=== PATIENT | female | born 1995 | race Caucasian/White ===

== ENCOUNTER 2019-08-09 14:26 | Emergency (ER) | payer BC ==
[2019-08-09] MEDS ORDERED: ONDANSETRON HCL INJ/PF 4 MG/2 ML SDV IV ONE (14:39)
--- NOTE | 2019-08-09 14:44 | ER Document Report ---
ED Medical Screen (RME) - General Chief Complaint: Possible Overdose Stated Complaint: POSSIBLE OVERDOSE Time Seen by Provider: 08/09/19 14:38 TRAVEL OUTSIDE OF THE [place] IN LAST 30 DAYS: No - HPI Notes: 08/09/19 14:40 Patient is a 23-year-old female with a history of polysubstance drug abuse with most common drug being cocaine and Xanax by way of snorting who presents complaining of nausea, vomiting, fatigue that began after ingesting 2 to 3 tablets of what she thought was Xanax. Patient later figured out that it was 'dirty 30' which is a Percocet laced with fentanyl drug. Patient states that she took 2 to 3 tablets at 7-8 AM this morning. She is otherwise urinating normally. Denies drug allergies. Denies fever, chest pain, shortness of breath, abdominal pain. I have treated and performed a rapid initial assessment of this patient. A comprehensive ED assessment and evaluation of the patient, analysis of test results and completion of medical decision making process will be conducted by additional ED providers. PHYSICAL EXAMINATION: GENERAL: Well-appearing, well-nourished and in no acute distress. A&Ox4. Answers questions appropriately. Eyes: PERRLA, EOMI bilaterally. Neuro: Cranial nerves grossly intact - Related Data Allergies/Adverse Reactions: No Known Allergies Allergy (Verified 08/09/19 14:32) Past Medical History - Social History Chew tobacco use (# tins/day): No Frequency of alcohol use: Rare Drug Abuse: Cocaine, Heroin, Methamphetamine, Other Psychiatric Medical History: Reports: Hx Depression - Immunizations Hx Diphtheria, Pertussis, Tetanus Vaccination: Yes
[2019-08-09 15:54] LABS: ABSOLUTE BASOPHILS # (AUTO) 0.1 10^3/uL (0.0-0.2); ABSOLUTE EOSINOPHILS # (AUTO) 0.1 10^3/uL (0.0-0.6); ABSOLUTE LYMPHOCYTES (AUTO) 1.7 10^3/uL (0.5-4.7); ABSOLUTE MONOCYTES (AUTO) 0.7 10^3/uL (0.1-1.4); ABSOLUTE NEUT (AUTO) 12.4 10^3/uL (1.7-8.2); BASOPHILS % (AUTO) 0.6 % (0-2); EOSINOPHILS % (AUTO) 0.4 % (0-6); HEMATOCRIT 40.2 % (36.0-47.0); HEMOGLOBIN 13.5 g/dL (12.0-15.5); LYMPHOCYTES % (AUTO) 11.4 % (13-45); MEAN CORPUSCULAR HEMOGLOBIN 27.6 pg (27.0-33.4); MEAN CORPUSCULAR HGB CONC 33.5 g/dL (32.0-36.0); MEAN CORPUSCULAR VOLUME 83 fl (80-97); MONOCYTES % (AUTO) 4.8 % (3-13); PLATELET COUNT 328 10^3/uL (150-450); RED BLOOD COUNT 4.88 10^6/uL (3.72-5.28); RED CELL DISTRIBUTION WIDTH 15.5 % (11.5-14.0); SEGMENTED NEUTROPHILS % (AUTO) 82.8 % (42-78); TOTAL CELLS COUNTED % (AUTO) 100 %
[2019-08-09 15:59] LABS: APPEARANCE,URINE SLIGHTLY-CLOUDY; BILIRUBIN,URINE NEGATIVE (NEGATIVE); COLOR,URINE YELLOW; GLUCOSE, URINE NEGATIVE (NEGATIVE); KETONES,URINE NEGATIVE (NEGATIVE); LEUKOCYTE ESTERASE,URINE NEGATIVE (NEGATIVE); NITRITE,URINE NEGATIVE (NEGATIVE); PROTEIN,URINE 30 mg/dL (NEGATIVE); UROBILINOGEN,URINE NEGATIVE mg/dL (<2.0)
[2019-08-09 16:05] LABS: ALBUMIN 4.5 g/dL (3.5-5.0); ALKALINE PHOSPHATASE 62 U/L (38-126); ANION GAP 11 (5-19); ASPARTATE AMINO TRANSFERASE 26 U/L (14-36); BILIRUBIN,DIRECT 0.1 mg/dL (0.0-0.4); BILIRUBIN,TOTAL 0.5 mg/dL (0.2-1.3); BLOOD UREA NITROGEN 12 mg/dL (7-20); CALCIUM 9.6 mg/dL (8.4-10.2); CARBON DIOXIDE 25 mmol/L (22-30); CHLORIDE 105 mmol/L (98-107); GLUCOSE 107 mg/dL (75-110); POTASSIUM 4.3 mmol/L (3.6-5.0)
[2019-08-09 16:07] LABS: ACETAMINOPHEN < 10 ug/mL (10-30); ALCOHOL < 10 mg/dL (NONE DETECTED); SALICYLATE < 1.0 mg/dL (2.0-20.0)
[2019-08-09 16:09] LABS: URINE AMPHETAMINES SCREEN NEGATIVE; URINE BARBITURATES SCREEN NEGATIVE; URINE BENZODIAZEPINES SCREEN NEGATIVE; URINE COCAINE SCREEN NEGATIVE; URINE MARIJUANA (THC) SCREEN NEGATIVE; URINE METHADONE SCREEN NEGATIVE; URINE PHENCYCLIDINE SCREEN NEGATIVE
[2019-08-09] MEDS ORDERED: ONDANSETRON HCL INJ/PF 4 MG/2 ML SDV ONE ×2 (17:52→17:53)
--- NOTE | 2019-08-09 17:58 | EKG REPORT ---
SEVERITY:- BORDERLINE ECG - SINUS RHYTHM BORDERLINE T ABNORMALITIES, DIFFUSE LEADS : Confirmed by: Noah Davis MD 09-Aug-2019 17:57:48
[2019-08-09] MEDS: NORMAL SALINE 1000 ML 1,000 ML IV PRN ×2 (18:03→18:04)
--- NOTE | 2019-08-09 18:40 | ER Document Report ---
ED General - General Chief Complaint: Possible Overdose Stated Complaint: POSSIBLE OVERDOSE Time Seen by Provider: 08/09/19 14:38 Primary Care Provider: SHIN BO PA [Primary Care Provider] - Follow up as needed Notes: RME NOTE: Patient is a 23-year-old female with a history of polysubstance drug abuse with most common drug being cocaine and Xanax by way of snorting who presents complaining of nausea, vomiting, fatigue that began after ingesting 2 to 3 tablets of what she thought was Xanax. Patient later figured out that it was 'dirty 30' which is a Percocet laced with fentanyl drug. Patient states that she took 2 to 3 tablets at 7-8 AM this morning. She is otherwise urinating normally. Denies drug allergies. Denies fever, chest pain, shortness of breath, abdominal pain. My HPI: Patient voices she did take medications as listed above this morning between 7 and 8 AM. Patient voices initially she felt generalized body aches. States she vomited "so many times." States she was initially tired and felt as though she cannot keep her eyes open. Patient voices "I was so much worse this morning." Patient voices that her friend convinced her to come to the emergency department for evaluation. Patient's denying any abdominal pain, she is denying any chest pain or shortness of breath. She is denying any URI symptoms or fever. She is denying any any skin infections. Patient has been treated with Zofran and 2 L of fluid by E provider. Patient voices "I feel so much better now." TRAVEL OUTSIDE OF THE [place] IN LAST 30 DAYS: No - Related Data Allergies/Adverse Reactions: No Known Allergies Allergy (Verified 08/09/19 14:32) Past Medical History - General Information source: Patient - Social History Smoking Status: Current Every Day Smoker Chew tobacco use (# tins/day): No Frequency of alcohol use: Rare Drug Abuse: Cocaine, Heroin, Methamphetamine, Other Family History: Reviewed & Not Pertinent Patient has suicidal ideation: Yes Patient has homicidal ideation: No Psychiatric Medical History: Reports: Hx Depression - Immunizations Hx Diphtheria, Pertussis, Tetanus Vaccination: Yes Hx Pneumococcal Vaccination: 01/24/15 Review of Systems - Review of Systems Constitutional: denies: Fever EENT: No symptoms reported Cardiovascular: denies: Chest pain Respiratory: No symptoms reported Gastrointestinal: See HPI Genitourinary: No symptoms reported Female Genitourinary: No symptoms reported Musculoskeletal: See HPI Skin: See HPI Hematologic/Lymphatic: No symptoms reported Neurological/Psychological: See HPI Physical Exam - Vital signs Vitals: Pulse Resp BP Pulse Ox 85 16 145/67 H 99 08/09/19 14:30 08/09/19 14:30 08/09/19 14:30 08/09/19 14:30 - Notes Notes: GENERAL: Alert, interacts well. No acute distress. HEAD: Normocephalic, atraumatic. EYES: Pupils equal, round, and reactive to light. Extraocular movements intact. ENT: Oral mucosa moist, tongue midline. NECK: Full range of motion. Supple. Trachea midline. LUNGS: Clear to auscultation bilaterally, no wheezes, rales, or rhonchi. No respiratory distress. HEART: Regular rate and rhythm. No murmur ABDOMEN: Soft, non-tender. Non-distended. Bowel sounds present in all 4 quadrants. EXTREMITIES: Moves all 4 extremities spontaneously. No edema, normal radial and dorsalis pedis pulses bilaterally. No cyanosis. 5 out of 5 strength noted all 4 extremities. BACK: no cervical, thoracic, lumbar midline tenderness. No saddle anesthesia, normal distal neurovascular exam. NEUROLOGICAL: Alert and oriented x3. Normal speech. cranial nerves II through XII grossly intact PSYCH: Normal affect, normal mood. SKIN: Warm, dry, normal turgor. No rashes or lesions noted. Course - Re-evaluation Re-evalutation: I have spoken with [facility], . 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 States that the patient does appear dehydrated we can rehydrate her. Otherwise there is no need for continued evaluation. Laboratory 08/09/19 08/09/19 08/09/19 15:25 15:25 15:25 WBC 15.0 H RBC 4.88 Hgb 13.5 Hct 40.2 MCV 83 MCH 27.6 MCHC 33.5 RDW 15.5 H Plt Count 328 Lymph % (Auto) 11.4 L [place] % (Auto) 4.8 Eos % (Auto) 0.4 Baso % (Auto) 0.6 Absolute Neuts (auto) 12.4 H Absolute Lymphs (auto) 1.7 Absolute Monos (auto) 0.7 Absolute Eos (auto) 0.1 Absolute Basos (auto) 0.1 Seg Neutrophils % 82.8 H Sodium 140.6 Potassium 4.3 Chloride 105 Carbon Dioxide 25 Anion Gap 11 BUN 12 Creatinine 0.87 Est GFR ( Amer) > 60 Est GFR (MDRD) Non-Af > 60 Glucose 107 Calcium 9.6 Total Bilirubin 0.5 Direct Bilirubin 0.1 Neonat Total Bilirubin Not Reportable Neonat Direct Bilirubin Not Reportable Neonat Indirect Bili Not Reportable AST 26 ALT 23 Alkaline Phosphatase 62 Total Protein 8.0 Albumin 4.5 Serum HCG, Qual NEGATIVE Urine Color Urine Appearance Urine pH Ur Specific [place] Urine Protein Urine Glucose (UA) Urine Ketones Urine Blood Urine Nitrite Urine Bilirubin Urine Urobilinogen Ur Leukocyte Esterase Urine WBC (Auto) Urine RBC (Auto) Squamous Epi Cells Auto Urine Mucus (Auto) Urine Ascorbic Acid Salicylates < 1.0 L Urine Opiates Screen Urine Methadone Screen Acetaminophen < 10 L Ur Barbiturates Screen Ur Phencyclidine Scrn Ur Amphetamines Screen U Benzodiazepines Scrn Urine Cocaine Screen U Marijuana (THC) Screen Serum Alcohol < 10 08/09/19 08/09/19 15:30 15:30 WBC RBC Hgb Hct MCV MCH MCHC RDW Plt Count Lymph % (Auto) [place] % (Auto) Eos % (Auto) Baso % (Auto) Absolute Neuts (auto) Absolute Lymphs (auto) Absolute Monos (auto) Absolute Eos (auto) Absolute Basos (auto) Seg Neutrophils % Sodium Potassium Chloride Carbon Dioxide Anion Gap BUN Creatinine Est GFR ( Amer) Est GFR (MDRD) Non-Af Glucose Calcium Total Bilirubin Direct Bilirubin Neonat Total Bilirubin Neonat Direct Bilirubin Neonat Indirect Bili AST ALT Alkaline Phosphatase Total Protein Albumin Serum HCG, Qual Urine Color YELLOW Urine Appearance SLIGHTLY-CLOUDY Urine pH 6.0 Ur Specific [place] 1.030 Urine Protein 30 H Urine Glucose (UA) NEGATIVE Urine Ketones NEGATIVE Urine Blood NEGATIVE Urine Nitrite NEGATIVE Urine Bilirubin NEGATIVE Urine Urobilinogen NEGATIVE Ur Leukocyte Esterase NEGATIVE Urine WBC (Auto) 2 Urine RBC (Auto) 1 Squamous Epi Cells Auto 7 Urine Mucus (Auto) MANY Urine Ascorbic Acid NEGATIVE Salicylates Urine Opiates Screen NEGATIVE Urine Methadone Screen NEGATIVE Acetaminophen Ur Barbiturates Screen NEGATIVE Ur Phencyclidine Scrn NEGATIVE Ur Amphetamines Screen NEGATIVE U Benzodiazepines Scrn NEGATIVE Urine Cocaine Screen NEGATIVE U Marijuana (THC) Screen NEGATIVE Serum Alcohol Patient is denying suicidal or homicidal ideations. She is denying the want or need for rehabilitation. Patient voices she was concerned because the medication was laced with fentanyl and she has heard back "that stuff will kill you." Patient has been treated with 2 L of fluid in the emergency department, she is also been given Zofran. Patient's repeat examination reveals no abdominal pain. Abdomen is soft and nontender throughout. Labs do show signs of leukocytosis which could be due to her excessive vomiting. Patient has had no further episodes of vomiting in the emergency department. Patient has been able to p.o. fluids. Patient stable for discharge. - Vital Signs Vital signs: Temp Pulse Resp BP Pulse Ox 97.7 F 85 24 H 145/67 H 98 08/09/19 16:25 08/09/19 14:30 08/09/19 18:18 08/09/19 14:30 08/09/19 18:00 - Laboratory Result Diagrams: 08/09/19 15:25 08/09/19 15:25 Laboratory results interpreted by me: 08/09/19 08/09/19 08/09/19 15:25 15:25 15:30 WBC 15.0 H RDW 15.5 H Lymph % (Auto) 11.4 L Absolute Neuts (auto) 12.4 H Seg Neutrophils % 82.8 H Urine Protein 30 H Salicylates < 1.0 L Acetaminophen < 10 L Discharge - Discharge Clinical Impression: Accidental overdose Qualifiers: Encounter type: initial encounter Qualified Code(s): T50.901A - Poisoning by unspecified drugs, medicaments and biological substances, accidental (unin tentional), initial encounter Condition: Stable Disposition: HOME, SELF-CARE Instructions: Overdose ([facility]) Additional Instructions: As we discussed you have been seen and treated in the emergency department after an accidental overdose. Is very important that you do not take medications that are not prescribed to you. Please follow-up with your primary care in the next 12 to 24 hours. Return to the emergency department for any concerns. Referrals: SHIN BO PA [Primary Care Provider] - Follow up as needed
[2019-08-09 19:55] VITALS: BP 111/64
== END 2019-08-09 19:22 | disposition home or self-care (01) ==
LOC: ER 14:26
DX: T50.901A Poisoning by unspecified drugs, medicaments and biological substances, accidental (unintentional), initial encounter (principal); R11.2 Nausea with vomiting, unspecified; R53.83 Other fatigue; F14.10 Cocaine abuse, uncomplicated; F11.10 Opioid abuse, uncomplicated; F15.10 Other stimulant abuse, uncomplicated; F13.10 Sedative, hypnotic or anxiolytic abuse, uncomplicated; F17.200 Nicotine dependence, unspecified, uncomplicated
CPT/HCPCS: 93005; 36415; 80307 ×4; 84703; 85025; 80053; 81001; 93010; J2405; J7030; 96361; 96374; 99284

== ENCOUNTER 2019-12-01 22:53 | Emergency (ER) | payer OTHER, BC ==
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
--- NOTE | 2019-12-02 00:08 | RADIOLOGY REPORT (SQ) ---
EXAM DESCRIPTION: XR SHOULDER 2 OR MORE VIEWS COMPLETED DATE/TME: 12/01/2019 23:34 CLINICAL HISTORY: 23 years, Female, trauma COMPARISON: None. NUMBER OF VIEWS: 3 TECHNIQUE: Internal/external and transscapular Y projections were acquired LIMITATIONS: None. FINDINGS: Visualized osseous structures are normal in appearance. Joint spaces are well-maintained. No acute fracture or dislocation is evident. Visualized portions of the right lung are clear. IMPRESSION: No acute osseous anomaly. copyright 2010 [employer]- All Rights Reserved
[2019-12-02] MEDS ORDERED: KETOROLAC TROMETHAMINE 60 MG/2 ML SDV IM ONE (00:27)
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
[2019-12-02 01:04] VITALS: BP 110/71
== END 2019-12-02 01:02 | disposition home or self-care (01) ==
LOC: ER 22:53
DX: S40.011A Contusion of right shoulder, initial encounter (principal); Y04.2XXA Assault by strike against or bumped into by another person, initial encounter; Y93.89 Activity, other specified; Y92.481 Parking lot as the place of occurrence of the external cause; Y99.0 Civilian activity done for income or pay; F17.200 Nicotine dependence, unspecified, uncomplicated; Z79.899 Other long term (current) drug therapy
CPT/HCPCS: 99283; 73030; J1885

== ENCOUNTER 2020-03-01 19:02 | Emergency (ER) | payer BC ==
--- NOTE | 2020-03-01 19:13 | ER Document Report ---
HPI - HPI Patient complains to provider of: Cough Time Seen by Provider: 03/01/20 19:09 Onset: Just prior to arrival Quality of pain: Achy Associated Symptoms: None, Slow to respond Relieved by: Denies Notes: This a 24-year-old female presents to the emergency room today with a cough and congestion which is been ongoing for about 2 weeks although she does smoke. She has had no nausea no vomiting she does have some diarrhea. - ROS ROS below otherwise negative: Yes - CONSTITUTIONAL Constitutional: DENIES: Fever - REPRODUCTIVE Reproductive: DENIES: : Past Medical History - General Information source: Patient - Social History Smoking Status: Current Every Day Smoker Cigarette use (# per day): Yes - 20 Frequency of alcohol use: None Drug Abuse: None Family History: Reviewed & Not Pertinent Psychiatric Medical History: Reports: Hx Depression - Immunizations Hx Diphtheria, Pertussis, Tetanus Vaccination: Yes Hx Pneumococcal Vaccination: 01/24/15 Vertical Provider Document - CONSTITUTIONAL Agree With Documented VS: Yes - INFECTION CONTROL TRAVEL OUTSIDE OF THE [place] IN LAST 30 DAYS: No - HEENT HEENT: Atraumatic, Conjuctival Injection, Normocephalic, PERRLA - NECK Neck: Normal Inspection - RESPIRATORY Respiratory: Breath Sounds Normal, No Respiratory Distress - CARDIOVASCULAR Cardiovascular: Regular Rate, Regular Rhythm - GI/ABDOMEN Gastrointestinal: Abdomen Soft, Abdomen Non-Tender - BACK Back: CVA Tenderness-Left - MUSCULOSKELETAL/EXTREMETIES Musculoskeletal/Extremeties: MAEW Course - Re-evaluation Re-evalutation: 03/01/20 20:44 No chest pain no exertional chest pain no shortness of breath no exertional shortness of breath no diaphoresis. Patient does smoke has had a cough intermittently for 3 to 4 days did experience little tightness at 10:00 this morning at work. Which is subsequently gone away. States that she does notice that she has a wheeze on occasion. - Vital Signs Vital signs: Temp Pulse Resp BP Pulse Ox 98.0 F 84 16 134/97 H 97 03/01/20 19:10 03/01/20 19:10 03/01/20 19:10 03/01/20 19:10 03/01/20 19:10 - Laboratory Laboratory results interpreted by me: 03/01/20 20:44 Labs- All tests 24 hr 03/01/20 19:35 Troponin I < 0.012 - Diagnostic Test Radiology results interpreted by me: 03/01/20 20:44 Chest X-Ray 03/01/20 19:12 IMPRESSION: No acute abnormality is identified. Discharge - Discharge Clinical Impression: Reactive airway disease Disposition: HOME, SELF-CARE Instructions: Reactive Airway Disease ([facility]) Prescriptions: Amoxicillin/Potassium Clav [Augmentin 875-125 Tablet] 1 tab PO Q12 #20 tablet Albuterol Sulfate [Proair HFA Inhalation Aerosol 8.5 gm MDI] 2 puff IH Q4H PRN #1 mdi PRN Reason: Referrals: SHIN BO PA [Primary Care Provider] - Follow up as needed
--- NOTE | 2020-03-01 20:22 | RADIOLOGY REPORT (SQ) ---
EXAM DESCRIPTION: XR CHEST 1 VIEW COMPLETED DATE/TME: 03/01/2020 19:12 CLINICAL HISTORY: 24 years Female pain sp fall COMPARISON: None. FINDINGS: The cardiomediastinal silhouette appears unremarkable. No consolidating infiltrates or pleural effusions. No pneumothorax. IMPRESSION: No acute abnormality is identified.
[2020-03-01 20:57] VITALS: BP 122/68
--- NOTE | 2020-03-01 21:52 | EKG REPORT ---
SEVERITY:- NORMAL ECG - SINUS RHYTHM : Confirmed by: Chio Camejo MD 01-Mar-2020 21:52:20
== END 2020-03-01 20:58 | disposition home or self-care (01) ==
LOC: ER 19:02
DX: J45.909 Unspecified asthma, uncomplicated (principal); R05 Cough; R09.81 Nasal congestion; F17.210 Nicotine dependence, cigarettes, uncomplicated
CPT/HCPCS: 36415; 71045; 84484; 93005; 93010; 99284

== ENCOUNTER 2020-03-26 11:22 | Emergency (ER) | payer BC ==
--- NOTE | 2020-03-26 11:49 | ER Document Report ---
ED Medical Screen (RME) - General Chief Complaint: Abdominal Pain Stated Complaint: ABDOMINAL PAIN Time Seen by Provider: 03/26/20 11:42 Primary Care Provider: SHIN BO PA [Primary Care Provider] - Follow up as needed Information source: Patient Notes: Patient presents with left-sided abdominal pain that moved to the lower pelvic area as well today. Patient states symptoms started yesterday. Patient denies any nausea vomiting or diarrhea. Patient does report vaginal discharge and some urinary frequency. Patient is uncertain if she may be . Patient states her menses have been irregular since stopping control 6 months ago. I have greeted and performed a rapid initial assessment of this patient. A comprehensive ED assessment and evaluation of the patient, analysis of test results and completion of the medical decision making process will be conducted by additional ED providers. TRAVEL OUTSIDE OF THE [place] IN LAST 30 DAYS: No - Related Data Allergies/Adverse Reactions: No Known Allergies Allergy (Verified 03/26/20 11:42) Past Medical History Psychiatric Medical History: Reports: Hx Depression - Immunizations Hx Diphtheria, Pertussis, Tetanus Vaccination: Yes Physical Exam - Vital signs Vitals: Temp Pulse Resp BP Pulse Ox 97.9 F 89 18 119/68 98 03/26/20 11:26 03/26/20 11:03/26/20 11:03/26/20 11:03/26/20 11:26 - General General appearance: Appears well, Alert Notes: No CVA tenderness, lower pelvic tenderness, exam limited as patient is sitting in chair Course - Vital Signs Vital signs: Temp Pulse Resp BP Pulse Ox 97.9 F 89 18 119/68 98 03/26/20 11:26 03/26/20 11:03/26/20 11:03/26/20 11:03/26/20 11:26 Doctor's Discharge - Discharge Referrals: SHIN BO PA [Primary Care Provider] - Follow up as needed
[2020-03-26 12:25] LABS: ABSOLUTE BASOPHILS # (AUTO) 0.1 10^3/uL (0.0-0.2); ABSOLUTE EOSINOPHILS # (AUTO) 0.3 10^3/uL (0.0-0.6); ABSOLUTE LYMPHOCYTES (AUTO) 3.4 10^3/uL (0.5-4.7); ABSOLUTE MONOCYTES (AUTO) 0.6 10^3/uL (0.1-1.4); ABSOLUTE NEUT (AUTO) 6.5 10^3/uL (1.7-8.2); EOSINOPHILS % (AUTO) 2.8 % (0-6); HEMOGLOBIN 14.4 g/dL (12.0-15.5); LYMPHOCYTES % (AUTO) 31.4 % (13-45); MEAN CORPUSCULAR HEMOGLOBIN 29.2 pg (27.0-33.4); MEAN CORPUSCULAR HGB CONC 34.2 g/dL (32.0-36.0); MEAN CORPUSCULAR VOLUME 85 fl (80-97); MONOCYTES % (AUTO) 5.2 % (3-13); PLATELET COUNT 349 10^3/uL (150-450); RED BLOOD COUNT 4.93 10^6/uL (3.72-5.28); RED CELL DISTRIBUTION WIDTH 15.1 % (11.5-14.0); SEGMENTED NEUTROPHILS % (AUTO) 59.6 % (42-78); TOTAL CELLS COUNTED % (AUTO) 100 %
[2020-03-26 12:36] LABS: APPEARANCE,URINE CLOUDY; BILIRUBIN,URINE NEGATIVE (NEGATIVE); COLOR,URINE YELLOW; GLUCOSE, URINE NEGATIVE (NEGATIVE); KETONES,URINE NEGATIVE (NEGATIVE); LEUKOCYTE ESTERASE,URINE TRACE (NEGATIVE); NITRITE,URINE NEGATIVE (NEGATIVE); PROTEIN,URINE 30 mg/dL (NEGATIVE); URINE SPECIFIC GRAVITY 1.027; UROBILINOGEN,URINE NEGATIVE mg/dL (<2.0)
[2020-03-26 12:48] LABS: ANION GAP 8 (5-19); BLOOD UREA NITROGEN 9 mg/dL (7-20); CALCIUM 9.7 mg/dL (8.4-10.2); CARBON DIOXIDE 25 mmol/L (22-30); CHLORIDE 105 mmol/L (98-107); GLUCOSE 119 mg/dL (75-110); POTASSIUM 4.2 mmol/L (3.6-5.0)
--- NOTE | 2020-03-26 13:04 | ER Document Report ---
ED General - General Chief Complaint: Abdominal Pain Stated Complaint: ABDOMINAL PAIN Time Seen by Provider: 03/26/20 11:42 Primary Care Provider: SHIN BO PA [Primary Care Provider] - Follow up as needed Notes: 24-year-old female presents with left lower quadrant pain, followed by a very sharp right lower quadrant abdominal pain which is now better. The left is dull and is been present for 2 days. She says it hurts "next to my ovary." She had 1 to 2 days of white creamy vaginal discharge which now resolved. No fever. No painful sex. Monogamous with with no history of STI. She has had ovarian cyst in the past and has had one child. She denies upper abdominal pain nausea vomiting diarrhea or fever. Pain is mild and she does not want any meds for it. TRAVEL OUTSIDE OF THE [place] IN LAST 30 DAYS: No - Related Data Allergies/Adverse Reactions: No Known Allergies Allergy (Verified 03/26/20 11:42) Home Medications: lucirAmina thomas Past Medical History - General Information source: Patient - Social History Smoking Status: Current Every Day Smoker Chew tobacco use (# tins/day): No Frequency of alcohol use: Social Drug Abuse: None Family History: Reviewed & Not Pertinent Patient has homicidal ideation: No Psychiatric Medical History: Reports: Hx Bipolar Disorder, Hx Depression - Immunizations Hx Diphtheria, Pertussis, Tetanus Vaccination: Yes Hx Pneumococcal Vaccination: 01/24/15 Review of Systems - Review of Systems Notes: REVIEW OF SYSTEMS GEN: Denies fever, chills, weight loss ENT: Denies sore throat, nasal discharge, ear pain EYES: Denies blurry vision, eye pain, discharge CV: Denies chest pain, palpitations, edema RESP: Denies cough, shortness of breath, wheezing GI: Lower abdominal pain MSK: Denies joint pain/swelling, edema, SKIN: Denies rash, skin lesions LYMPH: Denies swollen glands/lymph nodes NEURO: Denies headache, focal weakness or numbness, dizziness PSYCH: Denies depression, suicidal or homicidal ideation PHYSICAL EXAMINATION General: No acute distress, well-nourished Head: Atraumatic, normocephalic ENT: Mouth normal, oropharynx moist, no exudates or tonsillar enlargement Eyes: Conjunctiva normal, pupils equal, lids normal Neck: No JVD, supple, no guarding CVS: Normal rate, regular rhythm, no murmurs Resp: No resp distress, equal and normal breath sounds bilaterally GI: Very mild left lower quadrant/pelvic pain Ext: No deformities, no edema, normal range of motion in upper and lower ext Back: No CVA or midline TTP Skin: No rash, warm Lymphatic: No lymphadeopathy noted Neuro: Awake, alert. Face symmetric. GCS 15. Physical Exam - Vital signs Vitals: Temp Pulse Resp BP Pulse Ox 97.9 F 89 18 119/68 98 03/26/20 11:26 03/26/20 11:26 03/26/20 11:26 03/26/20 11:26 03/26/20 11:26 Course - Re-evaluation Re-evalutation: 03/26/20 13:03 Lower abdominal pain. Will rule out which would rule out ectopic, then check for urine, and rule out left ovarian torsion. Could be STI but discharge is better and tenderness is mild. 03/27/20 16:02 Ultrasound shows likely cyst rupture with trace free fluid no other findings. She looks well. Asking for work note. Will discharge with Motrin. Doubt STI. Labs otherwise essentially unremarkable not I have discussed with the patient there likely diagnosis, aftercare plan, follow-up plans and my usual and customary return precautions. They verbalized understanding of this. - Vital Signs Vital signs: Temp Pulse Resp BP Pulse Ox 98.1 F 86 18 105/75 99 03/26/20 15:49 03/26/20 15:44 03/26/20 11:26 03/26/20 15:44 03/26/20 15:44 - Laboratory Result Diagrams: 03/26/20 11:55 03/26/20 11:55 Laboratory results interpreted by me: 03/26/20 03/26/20 03/26/20 11:55 11:55 12:13 WBC 11.0 H RDW 15.1 H Glucose 119 H Urine Protein 30 H Urine Blood SMALL H Ur Leukocyte Esterase TRACE H Discharge - Discharge Clinical Impression: Pelvic pain Condition: Good Disposition: HOME, SELF-CARE Instructions: Abdominal Pain ([facility]) Additional Instructions: No evidence of ovary emergency or infection on your exam/ultrasound Forms: Return to Work Referrals: SHNI BO PA [Primary Care Provider] - Follow up as needed
[2020-03-26 14:33] LABS: CHLAM PCR NOT DETECTED (NOT DETECT)
--- NOTE | 2020-03-26 15:34 | RADIOLOGY REPORT (SQ) ---
EXAM DESCRIPTION: U/S NON OB PEL TV W/DOPPLER IMAGES COMPLETED DATE/TIME: 03/26/2020 3:07 pm REASON FOR STUDY: Left-sided abdominal pain rule out torsion LMP 03/02/2020 COMPARISON: None. TECHNIQUE: Dynamic and static grayscale images acquired of the pelvis via transvaginal approach and recorded on PACS. Additional selected color Doppler and spectral images recorded. LIMITATIONS: None. FINDINGS: UTERUS: Contour normal. No mass. ENDOMETRIAL STRIPE: No focal or generalized thickening. No masses. CERVIX: 2.7 cm. RIGHT OVARY AND DOPPLER: Normal size. No worrisome masses. Normal arterial vascular flow without evid ence for torsion. LEFT OVARY AND DOPPLER: Normal size. No worrisome masses. Normal arterial vascular flow without evide nce for torsion. FREE FLUID: There is some free fluid in the posterior cul-de-sac. OTHER: No other significant finding. MEASUREMENTS: UTERUS: 8.9 x 5.5 x 4.3 cm ENDOMETRIAL STRIPE: 9 mm RIGHT OVARY: 3 x 1.7 x 1.9 cm LEFT OVARY: 2.9 x 2.3 x 2.2 cm IMPRESSION: Normal study. There is no evidence of ovarian torsion. There is some free fluid in the posterior cul-de-sac. TECHNICAL DOCUMENTATION: JOB ID: [id number] 2010 [employer]- All Rights Reserved Reading location - IP/workstation name: [email or web address]
[2020-03-26 15:48] VITALS: BP 105/75
== END 2020-03-26 15:49 | disposition home or self-care (01) ==
LOC: ER 11:22
DX: R10.2 Pelvic and perineal pain (principal); R10.32 Left lower quadrant pain; F17.200 Nicotine dependence, unspecified, uncomplicated
CPT/HCPCS: 36415; 76830; 80048; 81001; 84703; 85025; 87491; 87591; 93976; 99284

== ENCOUNTER 2020-07-16 07:15 | Emergency (ER) | payer BC ==
--- NOTE | 2020-07-16 08:40 | ER Document Report ---
ED Fever - General Chief Complaint: Fever Stated Complaint: FEVER, VOMITING Time Seen by Provider: 07/16/20 08:16 Primary Care Provider: SHIN BO PA [Primary Care Provider] - Follow up as needed Notes: CHIEF COMPLAINT: Cough flu sore throat runny nose for 1 day HPI: 24-year-old female presenting for upper respiratory symptoms for 1 day. No definite fever. She has had myalgia, sore throat, runny nose, slight dry cough. 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 No chest pain no shortness of breath no abdominal pain nausea vomiting or headache. ROS: See HPI - all other systems were reviewed and are otherwise negative Constitutional: no fever Eyes: no drainage, no blurred vision ENT: no runny nose, + sore throat Cardiovascular: no chest pain Resp: no SOB, + cough GI: no vomiting, no diarrhea, no abdominal pain : no dysuria Integumentary: no rash Allergy: no hives Musculoskeletal: no extremity pain or swelling Neurological: no numbness/tingling, no weakness MEDICATIONS: I agree with the patient medications as charted by the RN. ALLERGIES: I agree with the allergies as charted by the RN. PAST MEDICAL HISTORY/PAST SURGICAL HISTORY: Reviewed and agree as charted by RN. SOCIAL HISTORY: Reviewed and agree as charted by RN. FAMILY HISTORY: No significant familial comorbid conditions directly related to patient complaint EXAM: Reviewed vital signs as charted by RN. CONSTITUTIONAL: Alert and oriented and responds appropriately to questions. Well-appearing; well-nourished HEAD: Normocephalic; atraumatic EYES: PERRL; Conjunctivae clear, sclerae non-icteric ENT: normal nose; positive clear rhinorrhea; moist mucous membranes; pharynx without lesions noted, no uvula edema or deviation, no tonsillar hypertrophy, phonation normal NECK: Supple without meningismus; non-tender; no cervical lymphadenopathy, no masses CARD: RRR; no murmurs, no clicks, no rubs, no gallops; symmetric distal pulses RESP: Normal chest excursion without splinting or tachypnea; breath sounds clear and equal bilaterally; no wheezes, no rhonchi, no rales, pulse oximetry ABD/GI: Normal bowel sounds; non-distended; soft, non-tender, no rebound, no guarding; no palpable organomegaly or masses. BACK: The back appears normal and is non-tender to palpation, there is no CVA tenderness EXT: Normal ROM in all joints; no cyanosis, no effusions, no edema SKIN: Normal color for age and race; warm; dry; good turgor; no acute lesions noted NEURO: Moves all extremities equally; Motor and sensory function intact PSYCH: The patient's mood and manner are appropriate. Grooming and personal hygiene are appropriate. MDM: 24-year-old female with flulike symptoms for 1 day. Will check strep and flu if both are negative will obtain Covid swab the patient will be a person under investigation for COVID-19 TRAVEL OUTSIDE OF THE [place] IN LAST 30 DAYS: No - Related Data Allergies/Adverse Reactions: No Known Allergies Allergy (Verified 03/26/20 11:42) Past Medical History - Social History Smoking Status: Unknown if Ever Smoked Family History: Reviewed & Not Pertinent Psychiatric Medical History: Reports: Hx Bipolar Disorder, Hx Depression - Immunizations Hx Diphtheria, Pertussis, Tetanus Vaccination: Yes Hx Pneumococcal Vaccination: 01/24/15 Physical Exam - Vital signs Vitals: Temp Pulse Resp BP Pulse Ox 98.2 F 99 17 127/79 H 97 07/16/20 07:25 07/16/20 07:25 07/16/20 07:25 07/16/20 07:25 07/16/20 07:25 Course - Re-evaluation Re-evalutation: 07/16/20 09:49 Strep and flu were both negative will test patient for Covid she will be a person under investigation pending results - Vital Signs Vital signs: Temp Pulse Resp BP Pulse Ox 98.2 F 99 17 127/79 H 97 07/16/20 07:25 07/16/20 07:25 07/16/20 07:25 07/16/20 07:25 07/16/20 07:25 Discharge - Discharge Clinical Impression: Sore throat (viral), Cough, Person under investigation for COVID-19 Condition: Stable Disposition: HOME, SELF-CARE Instructions: COVID-19 Guidance for Persons Under Investigation Additional Instructions: Your strep test and influenza test today were both negative. You are considered a person under investigation for COVID-19 at this time, self quarantine at home pending your test results which may take 2 to 5 days you should hear from someone at the hospital about your test results. Take Motrin or Tylenol for fever or body ache. [id number] medications for cough. Return for onset of fever, shortness of breath or worsening symptoms Forms: Return to Work Referrals: SHIN BO PA [Primary Care Provider] - Follow up as needed
[2020-07-16 09:28] LABS: A TYPE INFLUENZA AG NEGATIVE (NEGATIVE); B INFLUENZA AG NEGATIVE (NEGATIVE)
[2020-07-16 10:08] VITALS: BP 125/84
== END 2020-07-16 10:00 | disposition home or self-care (01) ==
LOC: ER 07:15
DX: J02.9 Acute pharyngitis, unspecified (principal); R50.9 Fever, unspecified; R11.10 Vomiting, unspecified; Z20.828 Contact with and (suspected) exposure to other viral communicable diseases
CPT/HCPCS: 99282; 87070; 87880; 87804; U0003; C9803; 87635

== ENCOUNTER 2020-08-24 18:41 | Emergency (ER) | payer BC ==
--- NOTE | 2020-08-24 18:59 | ER Document Report ---
ED Medical Screen (RME) - General Chief Complaint: Abscess Stated Complaint: ABSCESS Time Seen by Provider: 08/24/20 18:54 Primary Care Provider: SHIN BO PA [Primary Care Provider] - Follow up as needed Mode of Arrival: Ambulatory Information source: Patient Notes: HPI; 24-year-old female who states she has had a pilonidal cyst for 3 years that was drained 3 years ago. States it has never fully gone away. States 3 days ago it started getting bigger and more painful and is now draining a moderate amount of blood. She denies any fevers. No nausea, no vomiting, denies . Has never followed up or been referred to a surgeon for her cyst. PE: Alert and oriented x3. Lungs: Clear to auscultation without rales, rhonchi, wheezes. Heart: Regular rate rhythm without murmurs, rubs, gallops. I have greeted and performed a rapid initial assessment of this patient. A comprehensive ED assessment and evaluation of the patient, analysis of test results and completion of the medical decision making process will be conducted by additional ED providers. I have specifically instructed the patient or family members with the patient to immediately return to any nursing staff should anything change in the patient's condition or with their chief complaint. TRAVEL OUTSIDE OF THE [place] IN LAST 30 DAYS: No - Related Data Allergies/Adverse Reactions: No Known Allergies Allergy (Verified 08/24/20 18:47) Past Medical History - Social History Chew tobacco use (# tins/day): No Frequency of alcohol use: None Drug Abuse: None Psychiatric Medical History: Reports: Hx Bipolar Disorder, Hx Depression - Immunizations Hx Diphtheria, Pertussis, Tetanus Vaccination: Yes Physical Exam - Vital signs Vitals: Temp Pulse Resp BP Pulse Ox 97.3 F 74 18 104/57 L 99 08/24/20 18:48 08/24/20 18:48 08/24/20 18:48 08/24/20 18:48 08/24/20 18:48 Course - Vital Signs Vital signs: Temp Pulse Resp BP Pulse Ox 97.3 F 74 18 104/57 L 99 08/24/20 18:48 08/24/20 18:48 08/24/20 18:48 08/24/20 18:48 08/24/20 18:48 Doctor's Discharge - Discharge Referrals: SHIN BO PA [Primary Care Provider] - Follow up as needed
[2020-08-24] MEDS ORDERED: SULFAMETHOXAZOLE/TRIMETHOPRIM 800-160 MG TABLET PO ONE (21:26)
--- NOTE | 2020-08-24 21:29 | ER Document Report ---
HPI - HPI Patient complains to provider of: Pilonidal abscess Time Seen by Provider: 08/24/20 18:54 Onset/Duration: Worse Quality of pain: Achy Pain Level: 2 Context: Patient states she has had a pilonidal abscess chronically for the past 3 years. Patient states that over the past 3 days it started to drain. Patient denies any fever, nausea or vomiting. Associated Symptoms: Other - Sacral pain. denies: Fever Exacerbated by: Sitting Relieved by: Denies Similar symptoms previously: Yes Recently seen / treated by doctor: No - ROS ROS below otherwise negative: Yes Systems Reviewed and Negative: Yes All other systems reviewed and negative - CONSTITUTIONAL Constitutional: DENIES: Fever, Chills - GASTROINTESTINAL Gastrointestinal: DENIES: Abdominal Pain, Nausea - REPRODUCTIVE Reproductive: DENIES: : - DERM Skin Color: Normal Notes: Sacral abscess Past Medical History - General Information source: Patient - Social History Smoking Status: Never Smoker Chew tobacco use (# tins/day): No Frequency of alcohol use: None Drug Abuse: None Occupation: [employer] Lives with: Spouse/Significant other Family History: Reviewed & Not Pertinent Skin Medical History: Reports Other - Pilonidal abscess Psychiatric Medical History: Reports: Hx Bipolar Disorder, Hx Depression Past Surgical History: Reports: Hx Tonsillectomy, Hx Urinary Tract Surgery - Immunizations Hx Diphtheria, Pertussis, Tetanus Vaccination: Yes Hx Pneumococcal Vaccination: 01/24/15 Vertical Provider Document - CONSTITUTIONAL Agree With Documented VS: Yes Exam Limitations: No Limitations General Appearance: WD/WN, No Apparent Distress - INFECTION CONTROL TRAVEL OUTSIDE OF THE [place] IN LAST 30 DAYS: No - HEENT HEENT: Atraumatic, Normocephalic - NECK Neck: Normal Inspection - RESPIRATORY Respiratory: Breath Sounds Normal, No Respiratory Distress - CARDIOVASCULAR Cardiovascular: Regular Rate, Regular Rhythm - BACK Back: Normal Inspection - MUSCULOSKELETAL/EXTREMETIES Musculoskeletal/Extremeties: JESSICA [place] - NEURO Level of Consciousness: Awake, Alert, Appropriate Motor/Sensory: No Motor Deficit - DERM Integumentary: Warm, Dry, Abscess - Spontaneously draining open wound to the area superior to the gluteal cleft, no surrounding erythema, no palpable induration or fluctuance Course - Re-evaluation Re-evalutation: 08/24/20 21:28 Patient with a draining pilonidal cyst to the sacral area, no surrounding erythema, no palpable area of fluctuance. Very minimal bloody drainage. Wound probed with cotton swab, wound culture obtained. Patient encouraged to follow- up with general surgery for management of a chronic pilonidal cyst that she has had for 3 years. Patient requesting refill of albuterol inhaler as she has misplaced hers at home. - Vital Signs Vital signs: Temp Pulse Resp BP Pulse Ox 97.3 F 74 18 104/57 L 99 08/24/20 18:48 08/24/20 18:48 08/24/20 18:48 08/24/20 18:48 08/24/20 18:48 Discharge - Discharge Clinical Impression: Pilonidal abscess Condition: Stable Disposition: HOME, SELF-CARE Instructions: Abscess ([facility]), Trimethoprim-Sulfa ([facility]) Additional Instructions: Return immediately for any new or worsening symptoms Followup with your primary care provider, call tomorrow to make a followup appointment Wound culture is pending, we will call if you need any different treatment Follow-up with a surgeon for definitive management of your cystic lesion Prescriptions: Sulfamethoxazole/Trimethoprim [Bactrim Ds Tablet] 1 each PO BID #20 tablet Naproxen [Naprosyn 250 Nmg Tablet] 1 tab PO BID #14 tablet Albuterol Sulfate [Proair Hfa Inhalation Aerosol 8.5 gm Mdi] 2 puff IH Q4 PRN #1 mdi PRN Reason: Referrals: SHIN BO PA [Primary Care Provider] - Follow up as needed [facility] [Provider Group] - Follow up as needed
[2020-08-24 21:48] VITALS: BP 143/92
== END 2020-08-24 21:48 | disposition home or self-care (01) ==
LOC: ER 18:41
DX: L05.01 Pilonidal cyst with abscess (principal)
CPT/HCPCS: 87070; 87075; 87077; 87205; 99283

== ENCOUNTER 2020-09-01 16:31 | Emergency (ER) | payer BC ==
[2020-09-01 16:42] VITALS: BP 120/70
--- NOTE | 2020-09-01 17:46 | ER Document Report ---
ED Extremity Problem, Lower - General Chief Complaint: Toe Injury Stated Complaint: toe nail injury Time Seen by Provider: 09/01/20 17:39 Primary Care Provider: SHIN BO PA [Primary Care Provider] - Follow up as needed TRAVEL OUTSIDE OF THE [place] IN LAST 30 DAYS: No - HPI Notes: Patient is a 24 y/o female with no medical hx who presents with an injury to her right great toe and toenail. Patient was kicking a soccer ball with her daughter when they both went to kick it at the same time. Patient states her toe nail was lifting and immediately started bleeding. Patient reports pain to her right great toe but denies any other injuries or pain. - Related Data Allergies/Adverse Reactions: No Known Allergies Allergy (Verified 09/01/20 17:41) Home Medications: latuda, albuterol, buspirone Past Medical History - General Information source: Patient - Social History Smoking Status: Former Smoker Frequency of alcohol use: Occasional Drug Abuse: None Family History: Reviewed & Not Pertinent Patient has homicidal ideation: No Psychiatric Medical History: Reports: Hx Bipolar Disorder, Hx Depression Past Surgical History: Reports: Hx Tonsillectomy, Hx Urinary Tract Surgery - Immunizations Hx Diphtheria, Pertussis, Tetanus Vaccination: Yes Hx Pneumococcal Vaccination: 01/24/15 Review of Systems - Review of Systems Constitutional: No symptoms reported EENT: No symptoms reported Cardiovascular: No symptoms reported Respiratory: No symptoms reported Gastrointestinal: No symptoms reported Genitourinary: No symptoms reported Female Genitourinary: No symptoms reported Musculoskeletal: See HPI Skin: No symptoms reported Hematologic/Lymphatic: No symptoms reported Neurological/Psychological: No symptoms reported Physical Exam - Vital signs Vitals: Temp Pulse Resp BP Pulse Ox 97.4 F 91 20 120/70 97 09/01/20 16:41 09/01/20 16:41 09/01/20 16:41 09/01/20 16:41 09/01/20 16:41 - Notes Notes: PHYSICAL EXAMINATION: GENERAL: Well-appearing, well-nourished and in no acute distress. HEAD: Atraumatic, normocephalic. EYES: sclera anicteric, conjunctiva are normal. ENT: Moist mucous membranes. NECK: Normal range of motion LUNGS: Normal work of breathing HEART: 2+ radial pulses bilaterally EXTREMITIES: Right great toenail lifted and dried blood noted on the toe. Limited range of motion of the right great toe secondary to pain. 2+ DP and PT pulses on the right side. Sensation grossly intact. No pitting or edema. No cyanosis. NEUROLOGICAL: No focal neurological deficits. Moves all extremities spontaneously and on command. PSYCH: Normal mood, normal affect. SKIN: Warm, Dry, normal turgor, no rashes or lesions noted. Course - Re-evaluation Re-evalutation: Patient is a 23-year-old female who presents with a right great toenail injury and right great toe pain that occurred just prior to arrival. Vital signs are within normal limits. On exam, right great toenail lifted and dried blood noted on the toe. Limited range of motion of the right great toe secondary to pain. Right foot x-ray is negative and shows no fracture. Digital block performed on the right great toe using 1% lidocaine and 0.5% bupivacaine. Toenail removed without difficulty or complication. Patient placed in a postop shoe for comfort. Prescription for cephalexin given. Return precautions and follow-up instructions given. Patient understands and is in agreement the plan. Patient will be discharged home. - Vital Signs Vital signs: Temp Pulse Resp BP Pulse Ox 97.4 F 91 20 120/70 97 09/01/20 16:41 09/01/20 16:41 09/01/20 16:41 09/01/20 16:41 09/01/20 16:41 - Laboratory Results Critical Laboratory Results Reviewed: No Critical Results - Radiology Results Critical Radiology Results Reviewed: No Critical Results Procedures - Nail Trephanation/Removal Right Foot Great toe Nail Trepanation/Removal Location: Nail removal Betadine prep applied: No - Shurcleans used Finger Splint: No Notes: Right great toe anesthetized using a digital block with 1% lidocaine and 0.5% bupivacaine. Nail and toe cleansed using Shur-Clens. Nail removed without difficulty. Patient tolerated well without complications. Nonadhesive dressing applied. Postop shoe given for comfort. Discharge - Discharge Clinical Impression: Pain of right great toe Nail avulsion, toe Qualifiers: Encounter type: initial encounter Qualified Code(s): S91.209A - Unspecified open wound of unspecified toe(s) with damage to nail, initial encounter Condition: Stable Disposition: HOME, SELF-CARE Additional Instructions: Avulsed Nail You have had a nail avulsion. The nail will regrow, usually with no deformity. The complete process of regrowth takes about three months. (Toenails take about twice as long as fingernails.) Your new nail will be thin and easily injured for about a year. The nail bed (the tissue beneath the nail) will be oozy and tender for about ten days. During this time, it will need protection with bandages. The dressings should be changed every day, or whenever wet or dirty. A small amount of ointment directly on the nail bed can keep dressings from sticking. After early healing (five or six days), you'll want to dry out the nail bed. This is usually done with epsom soaks followed by air exposure. When the nail bed has formed a tough, dry, and non-tender membrane, you may stop dressing it. If redness, swelling, increasing tenderness, drainage, or tender lumps in the groin or armpit above the avulsion occur, call the doctor at once. Prescriptions: Cephalexin [Cephalexin 500 MG Tablet] 500 mg PO QID 5 Days #20 tablet Referrals: SHIN BO PA [Primary Care Provider] - Follow up as needed
--- NOTE | 2020-09-01 18:30 | RADIOLOGY REPORT (SQ) ---
EXAM DESCRIPTION: FOOT RIGHT COMPLETE IMAGES COMPLETED DATE/TIME: 09/01/2020 6:06 pm REASON FOR STUDY: right great toe injury COMPARISON: None. NUMBER OF VIEWS: Three views. TECHNIQUE: AP, lateral and oblique radiographic images acquired of the right foot. LIMITATIONS: None. FINDINGS: MINERALIZATION: Normal. BONES: No acute fracture or dislocation. No worrisome bone lesions. JOINTS: No effusions. SOFT TISSUES: No soft tissue swelling. No foreign body. OTHER: No other significant finding. IMPRESSION: NEGATIVE STUDY OF THE RIGHT FOOT. NO RADIOGRAPHIC EVIDENCE OF ACUTE INJURY. TECHNICAL DOCUMENTATION: JOB ID: [id number] 2010 [employer]- All Rights Reserved Reading location - IP/workstation name: [email or web address]
[2020-09-01] MEDS ORDERED: LIDOCAINE 1% INJ-PF (10 MG/ML) 30 ML SDV INJ ONE (19:38)
[2020-09-01] MEDS ORDERED: BUPIVACAINE HCL 0.5 % INJ/PF 30 ML SDV INJ ONE (19:39)
== END 2020-09-01 20:45 | disposition home or self-care (01) ==
LOC: ER 16:31
DX: S91.209A Unspecified open wound of unspecified toe(s) with damage to nail, initial encounter (principal); W21.02XA Struck by soccer ball, initial encounter; Y93.66 Activity, soccer
CPT/HCPCS: 99283; 73630; 11730; J3490 ×2

== ENCOUNTER 2020-09-16 15:59 | Emergency (ER) | payer BC | END 2020-09-16 17:38 | disposition left against medical advice (07) | LOC: ER 15:59 | DX: Z53.21 Procedure and treatment not carried out due to patient leaving prior to being seen by health care provider (principal) ==